=== PATIENT | female | born 1950 | race Caucasian/White ===

== ENCOUNTER → 2016-12-30 | Outpatient (CLI) | payer BC | LOC: MAMMO 08:52 | DX: Z12.31 Encounter for screening mammogram for malignant neoplasm of breast (principal) | CPT/HCPCS: G0202 ==

== ENCOUNTER → 2017-12-29 | Outpatient (CLI) | payer BC | LOC: RAD 09:46 | DX: M85.872 Other specified disorders of bone density and structure, left ankle and foot (principal); M77.40 Metatarsalgia, unspecified foot; Z88.1 Allergy status to other antibiotic agents ==

== ENCOUNTER → 2018-01-14 | Outpatient (CLI) | payer BC | LOC: MAMMO 08:16 | DX: Z13.820 Encounter for screening for osteoporosis (principal); M81.0 Age-related osteoporosis without current pathological fracture; Z12.31 Encounter for screening mammogram for malignant neoplasm of breast; Z00.00 Encounter for general adult medical examination without abnormal findings; Z13.220 Encounter for screening for lipoid disorders; J45.20 Mild intermittent asthma, uncomplicated ==

== ENCOUNTER → 2019-03-07 | Outpatient (CLI) | payer BC | LOC: MAMMO 07:10 | DX: R92.0 Mammographic microcalcification found on diagnostic imaging of breast (principal) ==

== ENCOUNTER → 2020-03-13 | Outpatient (CLI) | payer BC | LOC: MAMMO 08:20 | DX: Z12.31 Encounter for screening mammogram for malignant neoplasm of breast (principal); N63.20 Unspecified lump in the left breast, unspecified quadrant; M85.80 Other specified disorders of bone density and structure, unspecified site ==

== ENCOUNTER → 2020-03-22 | Outpatient (CLI) | payer BC | LOC: RAD 12:37 | DX: N63.20 Unspecified lump in the left breast, unspecified quadrant (principal) ==

== ENCOUNTER → 2021-03-27 | Outpatient (CLI) | payer MEDICARE | LOC: MAMMO 12:50 | DX: Z12.31 Encounter for screening mammogram for malignant neoplasm of breast (principal) ==

== ENCOUNTER → 2022-04-02 | Outpatient (CLI) | payer MEDICARE | LOC: MAMMO 07:27 → RAD 07:30 → MAMMO 07:45 | DX: Z12.31 Encounter for screening mammogram for malignant neoplasm of breast (principal); Z13.820 Encounter for screening for osteoporosis; M85.80 Other specified disorders of bone density and structure, unspecified site; K80.20 Calculus of gallbladder without cholecystitis without obstruction; K76.0 Fatty (change of) liver, not elsewhere classified ==

== ENCOUNTER → 2024-06-29 | Outpatient (CLI) | payer MEDICARE | LOC: MAMMO 09:54 | DX: Z12.31 Encounter for screening mammogram for malignant neoplasm of breast (principal); M81.0 Age-related osteoporosis without current pathological fracture ==

== ENCOUNTER → 2024-09-29 | Outpatient (CLI) | payer MEDICARE ==
[~2024-09-29] MED LIST: ALENDRONATE SOD70 MG PO; LATANOPROST 2.2.5 ML OU; PEPCID 20MG TAB20 MG PO; ZYRTEC10 M3 PO
== END ==
LOC: RAD 10:18 → MAMMO 10:30
DX: M81.0 Age-related osteoporosis without current pathological fracture (principal)

== ENCOUNTER 2024-10-02 11:16 | Emergency (ER) | payer MEDICARE ==
[~2024-10-02] VITALS: Ht 162.6 cm; Wt 85.5 kg
[2024-10-02] MEDS ORDERED: ALENDRONATE SOD70 MG PO (11:25)
[2024-10-02] MEDS ORDERED: LATANOPROST 2.2.5 ML OU (11:25)
[2024-10-02] MEDS ORDERED: ZYRTEC10 M3 PO (11:27)
[2024-10-02] MEDS ORDERED: PEPCID 20MG TAB20 MG PO (11:27)
[2024-10-02 11:34] LABS: EOS # 0.17 K/mm3 (0.04-0.40); EOS % 2.8 % (1.0-5.0); HEMATOCRIT 41.6 % (37.0-47.0); HEMOGLOBIN 13.5 g/dL (12.5-16.0); LYMPH# 1.72 K/mm3 (1.50-4.00); MEAN CELL VOLUME 94 fl (78-100); MEAN CORPUSCULAR HEMOGLOBIN 31 pg (27-31); MEAN CORPUSCULAR HGB CONC 33 g/dL (33-37); MEAN PLATELET VOLUME 10.5 fl (7.4-10.4); NEU # 3.46 K/mm3 (1.40-6.50); PLATELET COUNT 260 K/mm3 (130-400); RED BLOOD COUNT 4.42 M/mm3 (4.10-5.30); RED CELL DISTRIBUTION WIDTH 12.4 % (11.5-14.5); WHITE BLOOD COUNT 6.2 K/mm3 (4.8-10.8)
[2024-10-02 11:50] LABS: ALBUMIN 4.1 g/dL (3.4-4.8); CALCIUM 9.3 mg/dL (8.3-10.5); SODIUM 141 mmol/L (136-145)
[2024-10-02 11:51] LABS: GLUCOSE 102 mg/dL (65-105); TOTAL PROTEIN 7.3 g/dL (6.2-8.1)
[2024-10-02 11:54] LABS: CARBON DIOXIDE 23 mmol/L (23-31); TOTAL BILIRUBIN 0.4 mg/dL (0.2-1.2)
[2024-10-02 11:56] LABS: AST-SGOT 15 U/L (5-34)
[2024-10-02 11:57] LABS: ALT/SGPT 12 U/L (0-55)
[2024-10-02 12:08] LABS: TROPONIN-I < 0.030 ng/mL (0.00-0.033)
[2024-10-02 15:09] VITALS: BP 141/60
== END 2024-10-02 15:10 | disposition home or self-care (01) ==
LOC: ED 11:16
PROVIDERS: Family Medicine
DX: R07.89 Other chest pain (principal); R00.0 Tachycardia, unspecified; E66.9 Obesity, unspecified; Z68.32 Body mass index [BMI] 32.0-32.9, adult